=== PATIENT | female | born 1965 | race Caucasian/White ===

== ENCOUNTER 2017-12-25 13:31 | Emergency (ER) | payer OTHER, SELFPAY ==
[~2017-12-25] VITALS: Ht 154.9 cm; Wt 77.1 kg
[~2017-12-25 13:31] MED LIST: IBUPROFEN600 MG ORAL; NITROFURANTOIN100 M2 ORAL
[2017-12-25] MEDS ORDERED: NKM (13:41)
[2017-12-25 13:44] VITALS: BP 144/85
--- NOTE | 2017-12-25 14:32 | Emergency Room Report ---
History of Present Illness General Chief Complaint: Medical Clearance Source: Patient Present Illness HPI 52-year-old female patient presents ER BIB police for medical clearance to go to nursing home. police report patient was arrested last night for allegedly felony assault. Patient was not taking the hospital or ER last night for medical clearance. Patient reports concern over high blood pressure and feeling nauseous. Patient reports that she is taking a medication from [place], does not know the [place] brand-name version of the medication. Denies history of MS, stroke, other cardiovascular disease. Patient reports a history of smoking. Patient denies fever, chest pain, shortness of breath, abdominal pain , vomiting, dysuria. Patient also complains of feeling nauseous, states that she thinks it's related to nervousness about being arrested and in nursing home. Patient denies vision changes, loss of vision, headache, vertigo, sore throat, pain. Patient reports she has not followed up with her primary care provider for several months. patient denies suicidal or homicidal ideation. Allergies: Coded Allergies: No Known Allergies (Unverified , 06/15/16) Patient History Past Medical History: see triage record Last Menstrual Period: Post Reviewed Nursing Documentation: PMH: Agreed; PSxH: Agreed Nursing Documentation-PMH Hx Hypertension: Yes Hx Gastrointestinal Problems: Yes - stomach ulcer Review of Systems All Other Systems: negative except mentioned in HPI Physical Exam Vital Signs Date Time Temp Pulse Resp B/P (MAP) Pulse Ox O2 Delivery O2 Flow Rate FiO2 12/25/17 13:35 98.5 89 17 146/85 95 Room Air 98.4 Sp02 EP Interpretation: reviewed, normal General Appearance: well appearing, no apparent distress, alert, GCS 15, non- toxic Head: normocephalic, atraumatic Eyes: bilateral eye normal inspection, bilateral eye PERRL ENT: hearing grossly normal, normal pharynx, no angioedema, normal voice, TMs + canals normal, uvula midline, moist mucus membranes Neck: full range of motion Respiratory: lungs clear, normal breath sounds, no rhonchi, no respiratory distress, no accessory muscle use, no wheezing, speaking full sentences Cardiovascular #1: regular rate, rhythm, no edema Gastrointestinal: non tender, soft, no mass, non-distended, no guarding, no rebound Genitourinary: no CVA tenderness Musculoskeletal: back normal, digits/nails normal, gait/station normal, normal range of motion, non-tender Neurologic: alert, oriented x3, responsive, motor strength/tone normal, sensory intact Skin: no rash Lymphatic: no adenopathy Medical Decision Making PA Attestation Dr. Miller is my supervising Physician whom patient management has been discussed with. Diagnostic Impression: Primary Impression: History of hypertension Additional Impression: Medical clearance for incarceration ER Course Pt. presents to the ED requesting medical clearance for booking. Multiple differentials considered. Patient Vitals Signs WNL, patient is afebrile. blood pressure slightly elevated within normal limits per patient, denies acute symptoms in ER. Patient does not need acute intervention ER currently. Patient instructed to follow up with primary care provider for further treatment and referral to cardiology as needed. Patient reports understanding and agreement treatment plan. We'll recheck blood pressure prior to discharge. Will order EKG to rule out underlying pathology. PE benign. No skull depression, lungs clear to auscultation, no abdominal TTP. Patient not suicidal or homicidal at this time. Patient in no acute distress, nontoxic appearing, breathing without difficulty. ordered Zofran and EKG. ED INTERVENTIONS: Patient reports feeling better. informed patient that her blood pressure needs constant treatment and monitoring physician, follow up with physician for treatment. Nausea may be related to nerves. physical exam benign, no pain or TTP on distraction. Provided patient with Tylenol for pain symptoms. EKG unremarkable, no arrhythmia or ST elevation. Reviewed EKG with Dr. Miller. Patient denies acute complaints in ER currently. Patient okay for discharge to police custody for incarceration. Informed patient to alert police officers to new or worsening of symptoms, return to ER immediately for new onset of symptoms. do not believe patient is a danger to herself or others. DISCHARGE: At this time pt. is stable for d/c to police custody. Will provide printed patient care instructions, and any necessary prescriptions. Care plan and follow up instructions have been discussed with the patient prior to discharge. - Please note that this Emergency Department Report was dictated using [employer] technology software, occasionally this can lead to erroneous entry secondary to interpretation by the dictation equipment. EKG Diagnostic Results Rate: normal Rhythm: NSR, other ST Segments: no acute changes ASA given to the pt in ED: No PA Scribe Text Michael Devries PA-C Rhythm Strip Diag. Results EP Interpretation: yes Rate: 74 Rhythm: NSR, no PVC's, no ectopy SOY Scribe Text Michael Devries PA-C Last Vital Signs Date Time Temp Pulse Resp B/P (MAP) Pulse Ox O2 Delivery O2 Flow Rate FiO2 12/25/17 13:44 98.5 85 17 144/85 97 Room Air 98.5 Disposition: D/C TO LAW ENFORCEMENT IN [facility]UST Condition: Stable Referrals: NOT CHOSEN IPA/MD,REFERRING (PCP) Departure Forms: [facility] Clearance Patient Instructions: Hypertension, [id number] Additional Instructions: Followup with primary care provider in 3 -5 days for further treatment and referral as needed. Take medications as directed. Patient questions asked and answered. ER precautions given, patient instructed to return to ER immediately for any new or worsening of symptoms. Darwin Devries Dec 25, 2017 14:32
[2017-12-25] MEDS ORDERED: Acetaminophen 500mg (ES) tab ORAL ONE (14:45)
[2017-12-25 15:02] VITALS: BP 144/85
--- NOTE | 2017-12-26 17:05 | Cardiology Report ---
APPROVED REPORT EKG Measurement Heart [id number] ID [id number] Normal sinus rhythm with sinus arrhythmia Possible Left atrial enlargement Low voltage QRS Septal infarct, age undetermined Abnormal ECG
== END 2017-12-25 15:06 ==
LOC: EMR 14:10
DX: I10 Essential (primary) hypertension (principal); R11.0 Nausea; Z87.891 Personal history of nicotine dependence
CPT/HCPCS: 93005; 99283